=== PATIENT | female | born 1995 | race Caucasian/White ===

== ENCOUNTER 2018-11-02 12:37 | Emergency (ER) | payer MEDICAID ==
[~2018-11-02] VITALS: Ht 162.6 cm; Wt 68.5 kg
[2018-11-02 13:22] VITALS: Ht 162.6 cm; Wt 68.5 kg
[2018-11-02 14:56] VITALS: BP 120/72
== END 2018-11-02 14:56 | disposition home or self-care (01) ==
LOC: ED 12:37
DX: S86.991A Other injury of unspecified muscle(s) and tendon(s) at lower leg level, right leg, initial encounter (principal); W17.89XA Other fall from one level to another, initial encounter; Y93.12 Activity, springboard and platform diving; Y92.89 Other specified places as the place of occurrence of the external cause; Y99.8 Other external cause status
CPT/HCPCS: 90715

== ENCOUNTER 2020-02-11 19:50 | Emergency (ER) | payer MEDICAID ==
[~2020-02-11] VITALS: Ht 162.6 cm; Wt 66.7 kg
[2020-02-11 19:59] VITALS: Ht 162.6 cm; Wt 66.7 kg
[2020-02-11 23:50] LABS: BASOPHIL % 0.8 % (0.2-1.3); PLATELET COUNT 290 x10^3mcL (179-408); RED CELL DISTRIBUTION WIDTH 13.8 % (12.3-17.7)
[2020-02-12 00:02] LABS: CHLORIDE SERUM 102 mmol/L (98-107); CREATININE SERUM 0.9 mg/dL (0.6-1.0); GFR1 > 60 mL/min; GLUCOSE SERUM 93 mg/dL (74-106); POTASSIUM SERUM 3.5 mmol/L (3.5-5.1); SODIUM SERUM 138 mmol/L (136-145)
[2020-02-12 00:07] LABS: ALKALINE PHOSPHATASE 156 U/L (46-116); ALT/SGPT 59 U/L (14-59); AST/SGOT 30 U/L (15-37); BILIRUBIN TOTAL 4.1 mg/dL (0.20-1.00); TOTAL PROTEIN, SERUM 7.8 g/dL (6.4-8.2)
[2020-02-12 00:08] LABS: ALBUMIN 2.9 g/dL (3.4-5.0)
[2020-02-12 00:21] LABS: microscopic required? YES; urine erythrocyte NEGATIVE (NEGATIVE)
[2020-02-12 00:37] VITALS: BP 121/70
== END 2020-02-12 00:31 | disposition home or self-care (01) ==
LOC: ED 19:50
PROVIDERS: Emergency Medicine
DX: O26.892 Other specified pregnancy related conditions, second trimester (principal); E80.6 Other disorders of bilirubin metabolism; Z3A.20 20 weeks gestation of pregnancy